=== PATIENT | male | born 1980 | race African-American/Black ===

== ENCOUNTER → 2018-03-03 | Outpatient (CLI) | payer BC ==
[~2018-03-03] MED LIST: BACTRIM DS 8001 TAB PO; CEPHALEXIN500 M1 PO; PERCOCET 325 MG1 TA2 PO
== END ==
LOC: COL.RAD 11:15
DX: R22.1 Localized swelling, mass and lump, neck (principal)

== ENCOUNTER → 2018-03-05 | Outpatient (CLI) | payer BC | LOC: ZCOL.LAB 16:09 | DX: L02.11 Cutaneous abscess of neck (principal) ==

== ENCOUNTER 2022-12-02 10:42 | Emergency (ER) | payer SELFPAY ==
[~2022-12-02] VITALS: Ht 182.9 cm; Wt 75.0 kg
[2022-12-02 10:56] VITALS: TEMP 98.1
[2022-12-02 12:20] VITALS: BP 134/84; PULSE 67
== END 2022-12-02 12:20 | disposition home or self-care (01) ==
LOC: COL.ER 10:42
DX: M19.022 Primary osteoarthritis, left elbow (principal); Z28.310 Unvaccinated for COVID-19